=== PATIENT | male | born 1975 | race Two or more races ===

== ENCOUNTER 2018-02-28 18:30 | Emergency (ER) | payer SELFPAY ==
[~2018-02-28] VITALS: Ht 170.2 cm; Wt 72.6 kg
[2018-02-28 18:01] VITALS: BP 130/87
[2018-02-28] MEDS ORDERED: ceFAZolin 1gm/50ml Premix 50 ML IV ONE (18:45)
[2018-02-28] MEDS ORDERED: Lidocaine 1% 10mg/ml/Epi 0.005mg/ml 30ml vial INJ ONE (18:45)
[2018-02-28] MEDS ORDERED: ceFAZolin sod 1 GM in NS 55 ML IVPB SCH (18:55)
[2018-02-28] MEDS ORDERED: ACETAMINOPHEN-1 EAC1 ORAL (20:10)
[2018-02-28] MEDS ORDERED: CEPHALEXIN500 MG ORAL (20:10)
[2018-02-28] MEDS ORDERED: BACITRACIN15 GM TOPIC (20:10)
[2018-02-28 20:26] VITALS: BP 127/80
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
== END 2018-02-28 20:26 | disposition home or self-care (01) ==
LOC: EDBD 18:30 → EMR 19:00
DX: S01.311A Laceration without foreign body of right ear, initial encounter (principal); V43.52XA Car driver injured in collision with other type car in traffic accident, initial encounter; Y92.89 Other specified places as the place of occurrence of the external cause
CPT/HCPCS: 96365; 99284; J0690; 96360